=== PATIENT | male | born 1965 | race American Indian/Alaskan Native ===

== ENCOUNTER 2017-10-29 17:31 | Emergency (ER) | payer OTHER ==
--- NOTE | 2017-10-29 20:18 | XRay Report ---
FINAL REPORT EXAM: XR FINGER(S) 2+V RT HISTORY: laceration of the right index finger TECHNIQUE: AP, lateral, and oblique views of the right index finger PRIORS: None. FINDINGS: There is generalized soft tissue swelling of the distal half of the right index finger. Along the skin surface of the tip of the finger, there is a radiopaque foreign body measuring 1.5 mm. There is no evidence for acute fracture or dislocation. Bony mineralization is normal and joint spaces are maintained. IMPRESSION: No acute bony abnormality noted. Soft tissue swelling of the distal half the index finger. Foreign body along the skin surface of the distal tip of the index finger.
--- NOTE | 2017-10-29 21:02 | Emergency Department Report ---
Blank Doc - Documentation Documentation: The patient is a 52-year-old black male who cut his right index finger on some sheet metal at home several hours ago. Patient is here for laceration repair. Patient states the dressing stuck to his finger I have him soaking at this time to be able to loosen up the dressing to do a full evaluation.
--- NOTE | 2017-10-29 21:22 | Emergency Department Report ---
- General Chief Complaint: Wound/Laceration Stated Complaint: FINGER INJURY Time Seen by Provider: 10/29/17 20:58 Source: patient Mode of arrival: Ambulatory Limitations: No Limitations - History of Present Illness Initial Comments: 52-year-old male past medical history none presents with complaint of laceration to right distal index finger while accidentally handling sheet metal. -: This afternoon Extremity Location: Right: Hand (right distal index finger) Place: home - Related Data Previous Rx's Medication Instructions Recorded Last Taken Type Acetaminophen/Codeine [Tylenol 1 tab PO Q6H PRN #12 tab 10/29/17 Unknown Rx /Codeine # 3 tab] Cephalexin [Keflex] 500 mg PO Q12HR #14 cap 10/29/17 Unknown Rx Ibuprofen [Motrin] 800 mg PO Q8HR PRN #20 tablet 10/29/17 Unknown Rx Allergies Allergy/AdvReac Type Severity Reaction Status Date / Time No Known Allergies Allergy Unverified 10/29/17 18:49 ED Review of Systems ROS: Stated complaint: FINGER INJURY Other details as noted in HPI ED Past Medical Hx - Past Medical History Previous Medical History?: No - Surgical History Past Surgical History?: No - Social History Smoking Status: Current Every Day Smoker Substance Use Type: None - Medications Home Medications: Home Medications Medication Instructions Recorded Confirmed Last Taken Type Acetaminophen/Codeine [Tylenol 1 tab PO Q6H PRN #12 tab 10/29/17 Unknown Rx /Codeine # 3 tab] Cephalexin [Keflex] 500 mg PO Q12HR #14 cap 10/29/17 Unknown Rx Ibuprofen [Motrin] 800 mg PO Q8HR PRN #20 tablet 10/29/17 Unknown Rx ED Physical Exam - General Limitations: No Limitations General appearance: alert, in no apparent distress - Head Head exam: Present: atraumatic, normocephalic - Eye Eye exam: Present: normal appearance - ENT ENT exam: Present: mucous membranes moist - Neck Neck exam: Present: normal inspection - Respiratory Respiratory exam: Present: normal lung sounds bilaterally. Absent: respiratory distress - Cardiovascular Cardiovascular Exam: Present: regular rate, normal rhythm. Absent: systolic murmur, diastolic murmur, rubs, gallop - GI/Abdominal GI/Abdominal exam: Present: soft, normal bowel sounds - Rectal Rectal exam: Present: deferred - Extremities Exam Extremities exam: Present: normal inspection - Expanded Upper Extremity Exam Right Forearm Wrist exam: Present: normal inspection Hand Wrist exam: Present: normal inspection, full ROM Hand L/R Front: 1 - Positive: laceration (j shaped lac here) Neuro motor exam: Present: wrist extension intact, thumb opposition intact, thumb IP flexion intact, thumb adduction intact Neurosensory exam: Present: radial nerve intact, ulnar nerve intact, median nerve intact Vascular: Present: radial pulse, brachial pulse, ulnar pulse - Back Exam Back exam: Present: normal inspection - Neurological Exam Neurological exam: Present: alert, oriented X3, CN II-XII intact, normal gait - Psychiatric Psychiatric exam: Present: normal affect, normal mood - Skin Skin exam: Present: warm, dry, intact, normal color. Absent: rash ED Course Vital Signs 10/29/17 18:46 Temperature 98.2 F Pulse Rate 76 Respiratory 16 Rate Blood Pressure 129/93 O2 Sat by Pulse 99 Oximetry - Laceration /Wound Repair Right Distal Finger Wound Location: upper extremity (right ndex finger) Irrigated w/ Saline (ccs): 500 Anesthesia: 1% Lidocaine Volume Anesthetic (ccs): 8 Wound Debrided: minimal Wound Repaired With: sutures Suture Size/Type: 4:0, proline Number of Sutures: 10 Progress: Digital block performed. Good local anesthesia achieved. 10 Prolene sutures placed after irrigation of the wound with saline and iodine solution. Good closure achieved. Range of motion clinically intact right distal index finger. Distal capillary refill less than 1 second. Covered with gauze afterward Finger splint placed afterward ED Medical Decision Making - Medical Decision Making A/P: Distal right index finger Laceration 1-sutures to be removed in 7-10 days 2-tetanus updated today 3-Motrin when necessary, triple antibiotic ointment 4- pt advised to return to the ED for any fevers chills pus drainage erythema at site of laceration Critical care attestation.: If time is entered above; I have spent that time in minutes in the direct care of this critically ill patient, excluding procedure time. ED Disposition Clinical Impression: Finger laceration Qualifiers: Encounter type: initial encounter Finger: index finger Damage to nail status: without damage Foreign body presence: without foreign body Laterality: right Qualified Code(s): S61.210A - Laceration without foreign body of right index finger without damage to nail, initial encounter Disposition: TO HOME OR SELFCARE Is pt being admited?: No Does the pt Need Aspirin: No Instructions: Suture Care (ED), Finger Laceration (ED) Additional Instructions: Sutures to be removed in 7-10 days Prescriptions: Acetaminophen/Codeine [Tylenol /Codeine # 3 tab] 1 tab PO Q6H PRN #12 tab PRN Reason: Pain Cephalexin [Keflex] 500 mg PO Q12HR #14 cap Ibuprofen [Motrin] 800 mg PO Q8HR PRN #20 tablet PRN Reason: Pain Referrals: PRIMARY CARE, [Primary Care Provider] - 3-5 Days Time of Disposition: 22:29
[2017-10-29] MEDS ORDERED: BOOSTRIX IM ONE (22:23)
[2017-10-29 22:44] VITALS: BP 138/76
== END 2017-10-29 22:44 | disposition home or self-care (01) ==
LOC: ED 17:31
DX: S61.210A Laceration without foreign body of right index finger without damage to nail, initial encounter (principal); F17.200 Nicotine dependence, unspecified, uncomplicated; W45.8XXA Other foreign body or object entering through skin, initial encounter; Y93.89 Activity, other specified; Y92.89 Other specified places as the place of occurrence of the external cause; Y99.8 Other external cause status
CPT/HCPCS: 90471; 99283

== ENCOUNTER 2022-02-12 22:52 | Emergency (ER) | payer SELFPAY ==
[2022-02-13] MEDS ORDERED: ONDANSETRON 4 MG ODT TAB PO STA (00:15)
[2022-02-13] MEDS ORDERED: MORPHINE 4 MG/1 ML INJ IM STA (00:15)
[2022-02-13] MEDS ORDERED: TETANUS,DIPH,PERTUSS(ACELL) VACCINE 0.5 ML SYRINGE IM ONE (00:17)
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
[2022-02-13 02:44] VITALS: BP 138/89
== END 2022-02-13 02:44 | disposition home or self-care (01) ==
LOC: ED 22:52
DX: T23.409A Corrosion of unspecified degree of unspecified hand, unspecified site, initial encounter (principal); Y93.89 Activity, other specified; Y92.89 Other specified places as the place of occurrence of the external cause; Y99.8 Other external cause status
CPT/HCPCS: 16000; 90471; 90715; 96372; 99282; J2270; J3490; Q0162